=== PATIENT | male | born 1975 | race American Indian/Alaskan Native ===

== ENCOUNTER 2022-03-14 19:49 | Emergency (ER) | payer OTHER ==
[2022-03-14 20:11] VITALS: BP 179/102
[2022-03-14] MEDS ORDERED: IBUPROFEN 600 MG TAB PO ONE (22:42)
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
== END 2022-03-15 03:22 | disposition home or self-care (01) ==
LOC: ED 19:49
DX: M54.12 Radiculopathy, cervical region (principal)
CPT/HCPCS: 99282